=== PATIENT | male | born 1995 | race Caucasian/White ===

== ENCOUNTER 2017-10-14 19:42 | Emergency (ER) | payer OTHER ==
[2017-10-14 19:53] VITALS: TEMP 98.4
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
[2017-10-14] MEDS ORDERED: IBUPROFEN 600 MG TAB PO ONE (20:38)
[2017-10-14] MEDS ORDERED: HYDROCOD/APAP 5/325 PREPACK#6 BTL TAKEHOME ONE (21:16)
[2017-10-14] MEDS ORDERED: CYCLOBENZAPRINE 10MG PREPACK#3 BTL TAKEHOME ONE (21:16)
[2017-10-14 21:17] VITALS: BP 122/81; PULSE 67; RESP 16; O2SAT 97
== END 2017-10-14 21:32 | disposition home or self-care (01) ==
DX: S16.1XXA Strain of muscle, fascia and tendon at neck level, initial encounter (principal); S29.019A Strain of muscle and tendon of unspecified wall of thorax, initial encounter; V43.52XA Car driver injured in collision with other type car in traffic accident, initial encounter; Y92.410 Unspecified street and highway as the place of occurrence of the external cause; Y99.8 Other external cause status; Y93.89 Activity, other specified